=== PATIENT | female | born 1965 | race African-American/Black ===

== ENCOUNTER 2017-07-01 20:21 | Emergency (ER) | payer MEDICAID ==
[~2017-07-01] VITALS: Ht 170.2 cm; Wt 56.0 kg
[2017-07-01 20:28] VITALS: BP 150/83
== END 2017-07-01 23:37 | disposition home or self-care (01) ==
LOC: ER 20:55
DX: S16.1XXA Strain of muscle, fascia and tendon at neck level, initial encounter (principal); R11.0 Nausea; R63.0 Anorexia; X58.XXXA Exposure to other specified factors, initial encounter; Y93.89 Activity, other specified; Y92.89 Other specified places as the place of occurrence of the external cause; Y99.8 Other external cause status
CPT/HCPCS: 99283